=== PATIENT | male | born 2005 | race Two or more races ===

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

== ENCOUNTER 2023-10-01 15:58 | Emergency (ER) | payer OTHER, SELFPAY ==
[~2023-10-01] VITALS: Ht 185.4 cm; Wt 73.9 kg
[2023-10-01 18:05] VITALS: BP 138/79; TEMP 99.1; O2SAT 98
== END 2023-10-01 18:08 | disposition home or self-care (01) ==
LOC: M ED 15:58
DX: S53.402A Unspecified sprain of left elbow, initial encounter (principal); W19.XXXA Unspecified fall, initial encounter; Y92.89 Other specified places as the place of occurrence of the external cause; Y93.9 Activity, unspecified; Y99.9 Unspecified external cause status; F17.200 Nicotine dependence, unspecified, uncomplicated